=== PATIENT | female | born 1935 | race Caucasian/White ===

== ENCOUNTER → 2024-07-07 10:42 | Outpatient (BNVA) | payer MEDICARE, SELFPAY | PROVIDERS: Visit Provider Nurse Practitioner | DX: M17.0 Bilateral primary osteoarthritis of knee (principal) | CPT/HCPCS: 20610; 73560; 73565; 99204; J1100; J2795; J3301 ==

== ENCOUNTER → 2024-10-08 10:55 | Outpatient (BNVA) | payer MEDICARE, SELFPAY | PROVIDERS: Visit Provider Nurse Practitioner | DX: M17.0 Bilateral primary osteoarthritis of knee (principal) | CPT/HCPCS: 20610; J1100; J2795; J3301 ==

== ENCOUNTER → 2025-01-07 10:16 | Outpatient (BNVA) | payer MEDICARE, SELFPAY | PROVIDERS: Visit Provider Nurse Practitioner | DX: M17.0 Bilateral primary osteoarthritis of knee (principal); G89.29 Other chronic pain | CPT/HCPCS: 20610; J1100; J2795; J3301 ==

== ENCOUNTER → 2025-05-02 14:02 | Outpatient (BNVA) | payer MEDICARE, SELFPAY | PROVIDERS: Visit Provider Nurse Practitioner | DX: M17.0 Bilateral primary osteoarthritis of knee (principal) | CPT/HCPCS: 20610; 99214; J1100; J2795; J3301; J9999 ==

== ENCOUNTER → 2025-07-25 13:29 | Outpatient (BNVA) | payer MEDICARE, SELFPAY | PROVIDERS: PCP Nurse Practitioner; Visit Provider Nurse Practitioner | DX: M17.0 Bilateral primary osteoarthritis of knee (principal); Z71.89 Other specified counseling | CPT/HCPCS: 20610; J1100; J2795; J3301; J9999 ==

== ENCOUNTER → 2025-10-03 15:38 | Outpatient (BNVA) | payer MEDICARE, SELFPAY | PROVIDERS: PCP Nurse Practitioner; Visit Provider Nurse Practitioner | DX: M17.0 Bilateral primary osteoarthritis of knee (principal); M19.172 Post-traumatic osteoarthritis, left ankle and foot; Z71.89 Other specified counseling | CPT/HCPCS: 20610; 73610; 99214; J1100; J2795; J3301; J9999 ==

== ENCOUNTER → 2025-10-25 09:50 | Outpatient (BNVA) | payer MEDICARE, SELFPAY | PROVIDERS: PCP Nurse Practitioner; Visit Provider Nurse Practitioner | DX: M17.0 Bilateral primary osteoarthritis of knee (principal); M19.172 Post-traumatic osteoarthritis, left ankle and foot | CPT/HCPCS: 99212; G0463 ==